=== PATIENT | female | born 1945 | race Two or more races ===

== ENCOUNTER 2024-10-04 22:36 | Emergency (ER) | payer OTHER ==
[~2024-10-04] VITALS: Ht 165.1 cm; Wt 113.4 kg
[2024-10-04] MEDS ORDERED: CARBIDOPA-LEVO1 EAC9 (22:54)
[2024-10-04] MEDS ORDERED: CLONAZEPAM0.125 MG (22:54)
[2024-10-04] MEDS ORDERED: DICYCLOMIN10 MG/5 M1 (22:54)
[2024-10-04] MEDS ORDERED: QUETIAPINE FUMA25 MG (22:55)
[2024-10-04] MEDS ORDERED: MELATONIN1 MG/1 ML (22:55)
[2024-10-04] MEDS ORDERED: SERTRALINE20 MG/1 ML (22:55)
[2024-10-04] MEDS ORDERED: NASAL MIST126 ML (22:55)
[2024-10-04] MEDS ORDERED: COZAAR25 MG (22:55)
[2024-10-04] MEDS ORDERED: ACETAMINOPHEN 500 MG GEL..CAP PO ONE (23:45)
[2024-10-04] MEDS ORDERED: TETANUS & DIPHTHERIA TOX,ADULT 0.5 ML VIAL IM ONE (23:45)
[2024-10-05] MEDS ORDERED: ACETAMINOPHEN 500 MG GEL..CAP PO ONE (00:15)
[2024-10-05 00:56] LABS: HEMATOCRIT 37.3 % (36.0-45.00); HEMOGLOBIN 12.6 g/dL (12.0-15.00); MEAN CELL VOLUME 83.1 fL (80.00-100.00); MEAN CORPUSCULAR HEMOGLOBIN 28.2 pg (27.00-32.0); MEAN CORPUSCULAR HGB CONC 33.9 g/dl (32.0-36.0); PLATELET COUNT 193 K/uL (150-450); RED BLOOD COUNT 4.49 M/uL (4.00-6.00); RED CELL DISTRIBUTION WIDTH 14.9 % (11.5-14.5)
[2024-10-05 01:10] LABS: ALBUMIN 3.7 gm/dL (3.4-5.0); BILIRUBIN TOTAL 0.45 mg/dL (0.3-1.2); CALCIUM 9.9 mg/dL (8.5-10.1); CREATININE SERUM 1.48 mg/dL (0.55-1.02); GFR 34.11; GLOBULINA 4.1 G/DL (2.4-3.5); POTASSIUM 3.72 mEq/L (3.5-5.1); TOTAL PROTEIN 7.8 gm/dL (6.4-8.2)
[2024-10-05] MEDS ORDERED: hydrALAZINE HCL 20 MG VIAL IV ONE (01:30)
[2024-10-05 01:34] LABS: PH,URINE 6.5 (5.0-8.0); URINE APPEARANCE Clear; URINE BILIRRUBIN Negative (NEGATIVE); URINE BLOOD Negative; URINE COLOR Dark Yellow; URINE GLUCOSE Negative (NEGATIVE); URINE KETONE Negative (NEGATIVE); URINE LEUKOCYTE Trace; URINE NITRATE Negative; URINE PROTEIN 30 (NEGATIVE); URINE UROBILINOGEN 0.2 E.U./dl
[2024-10-05 01:41] LABS: URINE BACTERIA 163.9 uL (0.0-1933); URINE CAST 0.14 uL (0.0-1.40); URINE EPITHELIAL CELLS 2.5 uL (0.0-38.8); URINE RBC 2.3 uL (0.0-20.8); URINE WBC 42.7 uL (0.0-23.2)
[2024-10-05] MEDS ORDERED: FAMOTIDINE/PF 20 MG in 0.9 % SODIUM CHLORIDE 8 ML IV PUSH STA (03:32)
[2024-10-05] MEDS ORDERED: ONDANSETRON HCL 2 MG/ML VIAL IV ONE (03:45)
== END 2024-10-05 04:27 | disposition home or self-care (01) ==
LOC: ER 22:36
PROVIDERS: Emergency Medicine
DX: S09.8XXA Other specified injuries of head, initial encounter (principal); W18.39XA Other fall on same level, initial encounter; Y93.89 Activity, other specified; Y92.89 Other specified places as the place of occurrence of the external cause; Z88.6 Allergy status to analgesic agent; Z88.8 Allergy status to other drugs, medicaments and biological substances; I10 Essential (primary) hypertension; R56.9 Unspecified convulsions